=== PATIENT | female | born 1940 | race Caucasian/White ===

== ENCOUNTER → 2023-04-27 | Outpatient (CLI) | payer MEDICARE, OTHER, SELFPAY ==
--- NOTE | 2023-04-27 07:30 | BON_PTH ---
PATIENT: TOÑITO AMOR [facility] U[facility][id number] AGE/SX: 82/F ROOM: RE04/27/[address]: Dr. Chente Calderon DO : 1940 BED: DIS: 04/27/2023 SPEC #: [id number] RECD: 04/28/23 10:56 STATUS: MARGOT RELena #: [id number] MARLENY: 04/27/23 07:[address]: Chente Calderon DEPT: SURGICAL PATHOLOGY RECD BY: Annette Osorio ENTERED: 04/28/23 10:57 SP TYPE: Bone OTHR DR: No Primary Care Phys Tissues: Vertebra, NOS Procedures: Decalcification bone/plaque Surgery Specimen Level IV HEADER OPERATION: Thoracic 11 kyphoplasty PRE-OP DIAGNOSIS: Wedge compression fracture T11-T12 vertebra TISSUE SUBMITTED: Thoracic 11 Vertebral bone biopsy MICROSCOPIC DIAGNOSIS Thoracic 11 Vertebral bone, core biopsy: A piece of bone with reactive changes and callus formation. Negative for malignancy. SJ: 04/29/2023 MICROSCOPIC DESCRIPTION Slides are reviewed. GROSS DESCRIPTION Received in fixative is one container labeled with the patient's name and designated vertebral body bone. The specimen consists of a core biopsy of bone measuring 1 cm in length and 0.2 cm in diameter. Entire specimen is submitted in one cassette after decalcification. /LEONIDAS:james 04/28/23 TC:5 CPT: 17056, 06788
== END | disposition home or self-care (01) ==
PROVIDERS: Referring Provider Orthopaedic Surgery; Visit Provider Orthopaedic Surgery
DX: S22.080A Wedge compression fracture of T11-T12 vertebra, initial encounter for closed fracture (principal); M51.34 Other intervertebral disc degeneration, thoracic region; M85.88 Other specified disorders of bone density and structure, other site; X58.XXXA Exposure to other specified factors, initial encounter
CPT/HCPCS: 88305; 88311